=== PATIENT | male | born 1980 | race Caucasian/White ===

== ENCOUNTER → 2024-01-13 00:29 | Day surgery (SDC) | payer OTHER, SELFPAY ==
[2024-01-12 21:56] VITALS: BMI 39.1
[2024-01-12 21:58] VITALS: BP 146/99
[2024-01-12] MEDS: GlucaGen 1 MG IV (22:08)
[2024-01-12 22:25] LABS: ALT (SGPT) 46 U/L (0-50); AST (SGOT) 31 U/L (17-59); Albumin 4.4 g/dl (3.5-5.0); Alkaline Phosphatase 66 U/L (38-126); Blood Urea Nitrogen 18 mg/dl (9-20); Calcium 9.7 mg/dl (8.4-10.2); Carbon Dioxide 26 mmol/L (22-30); Chloride 102 mmol/L (98-107); Glucose 120 mg/dl (70-99); Potassium 3.9 mmol/L (3.5-5.1); Sodium 140 mmol/L (135-145); Total Bilirubin 1.8 mg/dl (0.2-1.3); eGFR > 60.00
--- NOTE | 2024-01-12 22:45 | ED.GENMED ---
History of Present Illness
General
Chief Complaint: Esophageal Problem
Source: patient
Exam Limitations: none
Time Seen by Provider: 01/12/24 22:22
Travel History
Have you had any contact with someone who has COVID-19?: No
Do you have any symptoms of coronavirus? Fever > 100 degrees, chills, cough, shortness of breath, sore throat, loss of taste or smell, muscle aches, or headache?: No
History of Present Illness
History of Present Illness:
This is a 43 year old male that comes in with c/o esophageal food bolus. States that around 6pm he eat steak and this is caught in his throat. States that he tried to drink water and then cause himself to vomiting but this did not work. States that
he called Dr. Howard and was told to try soda which he did but this made no difference. State that he feels like something is going down but it is also backing up. States that his abd feels bloated. Denies any fever, chills, chest pain, SOB,
nausea, diarrhea, headache, dizziness, urinary burning.
Past History
Past History
ED Past Medical History: Other (Eosinophilia Esophagitis, Esophageal stricture, Compression Fractures)
ED Past Surgical History: None
Social History
Tobacco: Non-smoker (Chews tobacco)
Alcohol: Occasional
Drug: None
Personal:
Living: alone
Family History
Family History: Negative Diabetes, Hypertension or CAD
Review of Systems
Review of Systems
All Other Systems: ROS reviewed and negative except as documented in HPI and ROS
Constitutional: Reports no symptoms; Denies fever or chills
EENT: Reports other (Food stuck in his throat)
Respiratory: Reports no symptoms; Denies cough or trouble breathing
Cardiac: Reports no symptoms; Denies chest pain
ABD/GI: Reports abdominal pain (Bloating) and vomiting (Forced himself to vomit); Denies nausea or diarrhea
: Reports no symptoms; Denies dysuria, frequency or urgency
Musculoskeletal: Reports no symptoms
Skin: Reports no symptoms
Neurological: Reports no symptoms; Denies dizzy or headache
Psychiatric: Reports no symptoms
Phy Exam
General Physical Exam
General Presentation: well appearing and no apparent distress
General age: appears stated age
General Skin: warm and dry
General Habitus: normal
General Mental: alert
General Hydration: appears well hydrated
ENT Exam
ENT Exam: TM's normal, pharynx normal and neck supple
Eye Exam
Eye Exam: EOMI
Cardiovascular Exam
Cardiovascular Exam: regular rate/rhythm, no edema, no murmur and normal peripheral pulses
Pulmonary Exam
Pulmonary Exam: lungs clear, no respiratory distress, no rales, chest non tender, no crackles, no rhonchi, no wheezing and other (Coughing with deep breathing)
Gastrointestinal Exam
Gastrointestinal Exam: normal bowel sounds, non tender, soft, no organomegaly, no pulsatile mass and non distended
Musculoskeletal Exam
Musculoskeletal Exam: full ROM and no edema
Skin Exam
Skin Exam: normal color, warm/dry, no rash and no petechia
Psychiatric Exam
Psychiatric Exam: normal mood/affect
Course
Orders/Labs/Results
Orders:
Orders
01/12/24 22:03
Glucagon [GlucaGen] 1 mg IV NOW STA
01/12/24 22:05
CMP [Comprehensive Metabolic Panel] Urgent
Complete Blood Count/With Diff Urgent
01/12/24 23:44
Dexamethasone Sod Phosphate [Decadron] 20 mg .ROUTE .STK-MED ONE
Fentanyl Citrate/Pf [Sublimaze] 100 mcg .ROUTE .STK-MED ONE
Lidocaine 2% Mpf [Xylocaine Mpf 2%] 100 mg .ROUTE .STK-MED ONE
Ondansetron Injectable [Zofran] 4 mg .ROUTE .STK-MED ONE
Propofol [Diprivan] 20 ml .ROUTE .STK-MED
Rocuronium [place] [Rocuronium] 50 mg .ROUTE .STK-MED ONE
Succinylcholine Chloride [Succinylcholine] 200 mg .ROUTE .STK-MED ONE
Sugammadex Sodium [Bridion] 200 mg .ROUTE .STK-MED ONE
Abnormal Lab Results
01/12/24
22:05
WBC 11.5 H 10^3/uL
(4.8-10.8)
MCH 31.6 H pg
(27.0-31.0)
Abs Immat Gran (auto) 0.1 H 10^3/uL
(0-0.05)
Absolute Neuts (auto) 7.9 H 10^3/uL
(1.4-6.5)
Absolute Monos (auto) 1.0 H 10^3/uL
(0.1-0.6)
Lymphocytes % 17.9 L %
(20.5-51.1)
Glucose 120 H mg/dl
(70-99)
Total Bilirubin 1.8 H mg/dl
(0.2-1.3)
01/12/24 22:05
01/12/24 22:05
Glucose nonfasting. Total mere slightly elevated. WBC slightly elevated.
Vital Signs
Initial and Last Documented VS:
Initial Vital Signs
Temp Pulse Resp BP Pulse Ox
98.3 F 96 20 146/99 96
01/12/24 21:58 01/12/24 21:58 01/12/24 21:58 01/12/24 21:58 01/12/24 21:58
Last Documented Vital Signs
Temp Pulse Resp BP Pulse Ox
98.4 F 94 14 132/88 95
01/13/24 01:10 01/13/24 01:10 01/13/24 01:10 01/13/24 01:15 01/13/24 01:15
MDM/Problems Addressed
Differential Diagnosis Includes:
Esophageal food bolus
MDM/Problems Addressed:
This is a 43 year old male that comes in with c/o food stuck in his esophagus. States that he eat steak earlier and not it is stuck.
Patient was given Glucagon without any relief. Dr. Howard notified. Await her response.
Spoke with DR. Howard and she will be in. Patient to go to GI lab
Chronic conditions affecting care:
Esophageal strictures
Acute Exacerbation and/or Progression of Chronic Illness:
Esophageal strictures with food bolus
*Pulse Oximetry
Patient hypoxic: no
*EKG
Interpreted by ED Provider?: NA
Rate: EKG- N/A
*Event Mgr Interpretation
Rate: Event Mgr- N/A
*Critical Care Note
Total Time (30-74mins, 75-104mins- exclusive of procedures): Not Applicable
ED Attending Note
-
Portions of this chart may have been created with voice recognition software.� Occasional wrong word or��sound alike� substitutions may have occurred due to the inherent limitations of voice recognition software.
Discharge Plan
Departure
Patient Disposition: GI LAB
Date of Disposition: 01/12/24
Time of Disposition: 23:15
Presentation/result/management discussed w/ accepting MD/DO: Braeden
Patient with high blood pressure during this ER visit?: Yes
Condition: Good
Discharge Problem:
Food bolus in esophagus
Prescriptions:
No Action
omeprazole 20 MG capsule,delayed release(DR/EC)
40 mg PO DAILY
bupropion HCl [Wellbutrin XL] 150 mg Tablet Extended Release 24 Hr
150 mg PO DAILY
dextroamphetamine-amphetamine [Adderall XR] 25 mg Capsule,Extended Release 24hr
25 mg PO DAILY
lidocaine 4 % Adhesive Patch,Medicated
1 patch topical DAILY 30 Days Qty: 30 0RF
docusate sodium 100 mg Capsule
100 mg PO BID 30 Days Qty: 60 0RF
methylprednisolone 4 mg Tablet
12 mg PO ONCE 1 Days Qty: 3 0RF
Rx Instructions:
on 05/20
baclofen 10 mg Tablet
10 mg PO Q6 30 Days Qty: 120 0RF
methylprednisolone 4 mg Tablet
8 mg PO ONCE 1 Days Qty: 2 0RF
Rx Instructions:
on 05/21/23
methylprednisolone 4 mg Tablet
4 mg PO ONCE 1 Days Qty: 1 0RF
Rx Instructions:
05/22
polyethylene glycol 3350 [HealthyLax] 17 gram Powder In Packet
17 g PO DAILY PRN (Reason: Constipation) 7 Days Qty: 100 0RF
oxycodone 5 mg Tablet
5 mg PO Q4HPRN PRN (Reason: moderate pain) 3 Days Qty: 10 0RF
oxycodone 10 mg Tablet
10 mg PO Q4HPRN PRN (Reason: severe pain) Qty: 5 0RF
acetaminophen 325 mg Tablet
650 mg PO Q4HPRN PRN (Reason: mild pain/ fever>100.5F) Qty: 60 0RF
Referrals:
Duke Murcia MD [Family Provider] -
Interventions
Interventions:
*Risk Screen - Suicide Last Done: 01/12/24 21:58
*General Assessment Last Done: 01/12/24 21:58
*Neglect/Abuse Screening Last Done: 01/12/24 21:58
ED- Fall Risk Assessment Last Done: 01/13/24 00:28
*ED COVID-19 Vaccine History Last Done: 01/13/24 00:28
*Nursing Disposition Last Done: 01/13/24 00:28
YJ-Csijwe-Qwucilsxab Assessment Last Done: 01/12/24 23:30
ED-EENT Assessment Last Done: 01/12/24 23:30
Discharge Date and Time
Discharge Date/Time: 01/13/24 00:29
Print Language: SAUDI ARABIAN
[2024-01-12 23:09] LABS: % Basophils 1.4 % (0-2); % Immature Granulocytes 0.5 % (0-0.5); % Lymphocytes 17.9 % (20.5-51.1); % Monocytes 8.7 % (1.7-9.3); % Neutrophils 68.5 % (42.2-75.2); Absolute Basophils 0.2 10^3/uL (0-0.2); Absolute Eosinophils 0.4 10^3/uL (0-0.7); Absolute Immature Granulocytes 0.1 10^3/uL (0-0.05); Absolute Lymphocytes 2.1 10^3/uL (1.2-3.4); Absolute Neutrophils 7.9 10^3/uL (1.4-6.5); Hematocrit 43.2 % (39.0-52.0); Hemoglobin 15.8 g/dL (13.0-18.0); Mean Corp Hgb Conc. 36.6 g/dL (33.0-37.0); Mean Corpuscular Hgb 31.6 pg (27.0-31.0); Mean Corpuscular Volume 86.4 fL (80.0-94.0); Mean Platelet Volume 9.6 fL (7.4-10.4); Nucleated Red Blood Cells % 0 % (-); Platelet Count 325 10^3/uL (130-400); Red Cell Dist. Width 12.9 % (11.5-14.5); White Blood Cell Count 11.5 10^3/uL (4.8-10.8)
[2024-01-12 23:31] VITALS: BP 141/78
--- NOTE | 2024-01-13 00:07 | CON.GI ---
Consultation
-
Date/Time Consultation Requested: 01/13/2024
Date/Time Consultation Performed: 01/13/2024
Requesting Provider: Beata Murguia NP
Performing Provider: Dr. Howard
Reason for Consultation: Food impaction
Medical History
Chief Complaint / HPI
Chief Complaint: Difficulty swallowing
History of Present Illness:
43-year-old male history of eosinophilic esophagitis, currently on once a day PPI presenting with complaints of not able to swallow water or liquids after eating steak for dinner last night.
He has history of�intermittent dysphagia dating back at least 15 years. He has been found to have mild Schatzki's ring requiring dilations and every few years he needs a dilation for maintenance. His endoscopy in 2022 showed EoE which was clinically
And endoscopically suspected. He was prescribed Dupixent but has not yet started. He is still taking twice a day PPI and has been doing very well since dilation.��On several endoscopic evaluations there were mucosal findings suggesting eosinophilic
esophagitis but biopsies have never revealed eosinophils greater than 20 per HPF. He has a history of heartburn that is controlled with pantoprazole 40 mg daily. He denies nausea, vomiting or abdominal pain there is been no change in his bowel
pattern, melena or hematochezia.
�������Other GI issues include a history of an adenomatous polyp identified on a colonoscopy in May 2020.
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
Past Medical History
Past Medical History: GERD and Other (Gilbert's, hereditary hemochromatosis mutation, colon polyp, history of Schatzki's ring)
Past Surgical History: Other (Anal fissure surgery)
Social History
Tobacco: Non-Smoker
Alcohol: Occasional
Family History
Family History: Reviewed & Not Pertinent
Allergies / Home Medications
Allergy/AdvReac Type Severity Reaction Status Date / Time
Penicillins Allergy RASH AND Verified 01/12/24 21:58
BREATHING
ISSUES
�Medication �Instructions �Recorded
omeprazole 20 mg capsule,delayed 40 mg PO DAILY Gastrointestinal 01/09/11
release Issue
bupropion HCl 150 mg 24 hr tablet, 150 mg PO DAILY Depression 05/16/23
extended release (Wellbutrin XL)
dextroamphetamine-amphetamine ER 25 mg PO DAILY ADHD 05/16/23
25 mg 24hr capsule,extend release
(Adderall XR)
acetaminophen 325 mg tablet 650 mg (2 x 325 mg) PO Q4HPRN PRN 05/19/23
mild pain/ fever>100.5F #60 tabs
baclofen 10 mg tablet 10 mg PO Q6 30 days #120 tabs 05/19/23
docusate sodium 100 mg capsule 100 mg PO BID 30 days #60 caps 05/19/23
lidocaine 4 % topical patch 1 patch topical DAILY shoulder 05/19/23
pain 30 days #30 ea
methylprednisolone 4 mg tablet 4 mg PO ONCE 1 day #1 tab 05/19/23
methylprednisolone 4 mg tablet 8 mg (2 x 4 mg) PO ONCE 1 day #2 05/19/23
tabs
methylprednisolone 4 mg tablet 12 mg (3 x 4 mg) PO ONCE 1 day #3 05/19/23
tabs
oxycodone 10 mg tablet 10 mg PO Q4HPRN PRN severe pain #5 05/19/23
tabs
oxycodone 5 mg tablet 5 mg PO Q4HPRN PRN moderate pain 3 05/19/23
days #10 tabs
polyethylene glycol 3350 17 gram 17 g PO DAILY PRN Constipation 7 05/19/23
oral powder packet (HealthyLax) days #100 ea
Review of Systems
-
All other systems: A 12 pt ROS was Negative except as stated above in HPI
Vital Signs
Temp Pulse Resp BP Pulse Ox
98.3 F 90 18 141/78 97
01/12/24 21:58 01/12/24 23:31 01/12/24 23:31 01/12/24 23:31 01/12/24 23:31
Physical Exam
Exam
General: Well Developed and Well Nourished
Cardiac: S1/S2 and Regular Rhythm
GI: Soft, Non Tender, Non Distended and Normal Bowel Sounds
Neuro: Awake and AO x 3
Results
WBC 11.5 10^3/uL (4.8-10.8) H 01/12/24 22:05
Hgb 15.8 g/dL (13.0-18.0) 01/12/24 22:05
Hct 43.2 % (39.0-52.0) 01/12/24 22:05
MCV 86.4 fL (80.0-94.0) 01/12/24 22:05
Plt Count 325 10^3/uL (130-400) 01/12/24 22:05
Absolute Neuts (auto) 7.9 10^3/uL (1.4-6.5) H 01/12/24 22:05
Sodium 140 mmol/L (135-145) 01/12/24 22:05
Potassium 3.9 mmol/L (3.5-5.1) 01/12/24 22:05
Chloride 102 mmol/L (98-107) 01/12/24 22:05
Carbon Dioxide 26 mmol/L (22-30) 01/12/24 22:05
BUN 18 mg/dl (9-20) 01/12/24 22:05
Creatinine 1.0 mg/dL (0.7-1.3) 01/12/24 22:05
Calcium 9.7 mg/dl (8.4-10.2) 01/12/24 22:05
Total Bilirubin 1.8 mg/dl (0.2-1.3) H 01/12/24 22:05
AST 31 U/L (17-59) 01/12/24 22:05
ALT 46 U/L (0-50) 01/12/24 22:05
Alkaline Phosphatase 66 U/L (38-126) 01/12/24 22:05
Diagnostic Image Results:
Prior GI Procedures:
10/2022 EGD for dysphagia on twice daily PPI. 3 cm hiatal hernia. Endoscopically consistent with EOE with rings, furrowing. Dilated to 20 mm. Biopsies of the distal�esophagus showed 54/hpf eosinophils. Proximal esophagus shows 61 eosinophils/hpf.�All
consistent with eosinophilic esophagitis. Otherwise the exam is normal.
We will start Dupixent for EOE. For now continue twice daily PPI.
_ __ _04/2020 EGD- Dysphagia and regurgitation on PPI. Significant saliva concerning for stasis. Endoscopically longitudinal furrowing concerning for EOE. Biopsies - NOT consistent with EOE. distal esophagus eosinophils 6/hpf no eosinophils in the
proximal esophagus. Dilated a benign appearing Schatzki's ring to 18 mm. Otherwise normal.��
Assessment / Plan
-
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
-h/o EoE
Currently only on omeprazole 40 mg once a day
Was supposed to start Dupixent but has not done that
Will do upper endoscopy with retrieval of food
Suggest taking omeprazole 40 mg twice a day for now
Take small bites, chew food well and stay upright with meals.
Follow up with Dr. Deras as outpatient-needs to start Dupixent given history of eosinophilic esophagitis and food impactions
-.
-
-
Thank you for consultation and allowing me to participate in the patient's care. Please call the front office medical assistant GI physician during the after hours with any questions or concerns.
[2024-01-13 00:49] VITALS: BP 141/78; BP 172/88
[2024-01-13 01:10] VITALS: BP 140/103
[2024-01-13 01:15] VITALS: BP 132/88
== END ==
LOC: EMR 01-12 21:55 → GI 00:29
PROVIDERS: ATTENDING PHYSICIAN Internal Medicine Gastroenterology; EMERGENCY PHYSICIAN Student in an Organized Health Care Education/Training Program; FAMILY PHYSICIAN Family Medicine
DX: R13.10 Dysphagia, unspecified (principal); K22.89 Other specified disease of esophagus
CPT/HCPCS: 43235; 80053; 85025; 96374; 99284; J1610

== ENCOUNTER → 2024-12-18 11:08 | Outpatient (REF) | payer OTHER, SELFPAY | LOC: HWRAD 11:08 | PROVIDERS: ATTENDING PHYSICIAN Family Medicine | DX: Z00.00 Encounter for general adult medical examination without abnormal findings (principal); M25.551 Pain in right hip | CPT/HCPCS: 73502 ==